=== PATIENT | male | born 1980 | race American Indian/Alaskan Native ===

== ENCOUNTER 2019-12-18 17:11 | Emergency (ER) | payer OTHER ==
--- NOTE | 2019-12-18 17:59 | EDM.PDOC ---
ED HPI GENERAL MEDICAL PROBLEM - General Chief Complaint: Cardiovascular Problem Stated Complaint: HIGH BP Time Seen by Provider: 12/18/19 17:20 Source of Information: Reports: Patient History Limitations: Reports: No Limitations - History of Present Illness INITIAL COMMENTS - FREE TEXT/NARRATIVE: Patient is a 39-year-old male who presents with complaints of double vision, lightheadedness, and mild headache. Patient states that the double vision and lightheadedness started last night and that the headache started today. Patient has a history of hypertension, type 2 diabetes, and high cholesterol. He's been out of his medications for 2 months, so he has not been taking them. He states that this morning his girlfriend called the [facility] ambulance and they came over and checked his blood pressure and blood sugar. He reports that his blood pressure was in the 160s systolic and that his blood sugar was about 153. He did find a bottle of his old medications and took one dose of each of these medications, however he is not sure what specific blood pressure medication he is on. Since taking the medication, his double vision has stayed the same and he feels that this symptom has gotten worse since last night. She does state that approximately 2 nights ago he slipped on the ice and fell on his right side. He does not feel like he hit his head, however he fell hard enough on his side where he did "see black ". He denies any tenderness to his head and did not have any headache immediately following the fall. Patient states that he does occasionally use alcohol with his last use being on Thursday of this week. He also smokes marijuana occasionally. The last time he smoked that was 3 days ago. He has no history of seizures or migraines or any neurologic disorders. Patient does state that he's been getting over a viral respiratory illness and has had some lingering nasal congestion. Denies any nausea, or vomiting since the onset of the symptoms. Headache Pain Score (Numeric/FACES): 4 - Related Data Allergies Allergy/AdvReac Type Severity Reaction Status Date / Time No Known Allergies Allergy Verified 12/18/19 17:21 Home Meds: Home Meds Amoxicillin/Clavulanate K [Augmentin 875-125 MG] 1 tab PO BID 7 Days #13 tablet 12/18/19 [Rx] Aspirin [Halfprin] 81 mg PO DAILY 12/18/19 [History] Cholesterol Med 0 mg PO DAILY 12/18/19 [History] Htn Med 0 mg PO DAILY 12/18/19 [History] metFORMIN [Glucophage XR] 0 mg PO DAILY 12/18/19 [History] Past Medical History HEENT History: Reports: Impaired Vision Other HEENT History: wears eyeglasses. Cardiovascular History: Reports: High Cholesterol, Hypertension Musculoskeletal History: Reports: Fracture Endocrine/Metabolic History: Reports: Diabetes, Type II - Infectious Disease History Infectious Disease History: Reports: Chicken Pox Social & Family History - Tobacco Use Smoking Status *Q: Current Some Day Smoker Years of Tobacco use: 20 Packs/Tins Daily: 0.1 - Caffeine Use Caffeine Use: Reports: Soda, Tea - Recreational Drug Use Recreational Drug Use: Yes Drug Use in Last 12 Months: Yes Recreational Drug Type: Reports: Marijuana/Hashish Other Recreational Drug Type: smokes marijuana frequently but not daily. States does not smoke cigarettes. ED ROS GENERAL - Review of Systems Review Of Systems: Comprehensive ROS is negative, except as noted in HPI. ED EXAM, GENERAL - Physical Exam Exam: See Below Exam Limited By: No Limitations General Appearance: Alert, WD/WN, No Apparent Distress Eye Exam: Bilateral Eye: Normal Inspection, PERRL, Vision Changes (patient verbalizes "double vision". When holding up a pen, patient states that he sees 2 of them that he also sees 2 of the provider.), Other (no nystagmus. Tracks appropriately.) Ears: Normal External Exam, Normal Canal, Hearing Grossly Normal, Normal TMs Head: Atraumatic, Normocephalic Respiratory/Chest: No Respiratory Distress, Lungs Clear, Normal Breath Sounds, No Accessory Muscle Use, Chest Non-Tender Cardiovascular: Normal Peripheral Pulses, Regular Rate, Rhythm, No Edema, No Gallop, No JVD, No Murmur, No Rub Neurological: Alert, Oriented, CN II-XII Intact, Normal Cognition, Normal Gait, Normal Reflexes, No Motor/Sensory Deficits Psychiatric: Normal Affect, Normal Mood Skin Exam: Warm, Dry, Intact, Normal Color, No Rash Lymphatic: No Adenopathy Course - Vital Signs Last Recorded V/S: Last Vital Signs Temp 98.4 F 12/18/19 19:25 Pulse 72 12/18/19 19:25 Resp 16 12/18/19 19:25 BP 130/83 01/19/20 19:25 Pulse Ox 97 12/18/19 19:25 - Orders/Labs/Meds Orders: Active Orders 24 hr Category Date Time Status Visual Acuity [Vision Test] [RC] ASDIRECTED Care 12/18/19 18:20 Active Labs: Laboratory Tests 12/18/19 12/18/19 12/18/19 Range/Units 17:24 18:05 18:05 WBC 7.65 (4.23-9.07) K/mm3 RBC 5.66 (4.63-6.08) M/mm3 Hgb 16.7 (13.7-17.5) gm/dl Hct 49.6 (40.1-51.0) % MCV 87.6 (79.0-92.2) fl MCH 29.5 (25.7-32.2) pg MCHC 33.7 (32.2-35.5) g/dl RDW Std Deviation 43.7 (35.1-43.9) fL Plt Count 307 (163-337) K/mm3 MPV 10.0 (9.4-12.3) fl Neut % (Auto) 66.0 (34.0-67.9) % Lymph % (Auto) 23.7 (21.8-53.1) % [place] % (Auto) 7.7 (5.3-12.2) % Eos % (Auto) 1.7 (0.8-7.0) Baso % (Auto) 0.5 (0.1-1.2) % Neut # (Auto) 5.05 (1.78-5.38) K/mm3 Lymph # (Auto) 1.81 (1.32-3.57) K/mm3 [place] # (Auto) 0.59 (0.30-0.82) K/mm3 Eos # (Auto) 0.13 (0.04-0.54) K/mm3 Baso # (Auto) 0.04 (0.01-0.08) K/mm3 Sodium 140 (136-145) mEq/L Potassium 4.0 (3.5-5.1) mEq/L Chloride 103 (98-107) mEq/L Carbon Dioxide 26 (21-32) mEq/L Anion Gap 15.0 (5-15) BUN 13 (7-18) mg/dL Creatinine 0.9 (0.7-1.3) mg/dL Est Cr Clr Drug Dosing 118.53 mL/min Estimated GFR (MDRD) > 60 (>60) mL/min BUN/Creatinine Ratio 14.4 (14-18) Glucose 141 H (74-106) mg/dL POC Glucose 130 H (70-105) mg/dL Calcium 9.2 (8.5-10.1) mg/dL Total Bilirubin 0.9 (0.2-1.0) mg/dL AST 48 H (15-37) U/L ALT 95 H (16-63) U/L Alkaline Phosphatase 95 (46-116) U/L Total Protein 7.6 (6.4-8.2) g/dl Albumin 4.0 (3.4-5.0) g/dl Globulin 3.6 gm/dL Albumin/Globulin Ratio 1.1 (1-2) TSH 3rd Generation 1.297 (0.358-3.74) uIU/mL Ethyl Alcohol (0.00) gm% 12/18/19 Range/Units 18:05 WBC (4.23-9.07) K/mm3 RBC (4.63-6.08) M/mm3 Hgb (13.7-17.5) gm/dl Hct (40.1-51.0) % MCV (79.0-92.2) fl MCH (25.7-32.2) pg MCHC (32.2-35.5) g/dl RDW Std Deviation (35.1-43.9) fL Plt Count (163-337) K/mm3 MPV (9.4-12.3) fl Neut % (Auto) (34.0-67.9) % Lymph % (Auto) (21.8-53.1) % [place] % (Auto) (5.3-12.2) % Eos % (Auto) (0.8-7.0) Baso % (Auto) (0.1-1.2) % Neut # (Auto) (1.78-5.38) K/mm3 Lymph # (Auto) (1.32-3.57) K/mm3 [place] # (Auto) (0.30-0.82) K/mm3 Eos # (Auto) (0.04-0.54) K/mm3 Baso # (Auto) (0.01-0.08) K/mm3 Sodium (136-145) mEq/L Potassium (3.5-5.1) mEq/L Chloride (98-107) mEq/L Carbon Dioxide (21-32) mEq/L Anion Gap (5-15) BUN (7-18) mg/dL Creatinine (0.7-1.3) mg/dL Est Cr Clr Drug Dosing mL/min Estimated GFR (MDRD) (>60) mL/min BUN/Creatinine Ratio (14-18) Glucose (74-106) mg/dL POC Glucose (70-105) mg/dL Calcium (8.5-10.1) mg/dL Total Bilirubin (0.2-1.0) mg/dL AST (15-37) U/L ALT (16-63) U/L Alkaline Phosphatase (46-116) U/L Total Protein (6.4-8.2) g/dl Albumin (3.4-5.0) g/dl Globulin gm/dL Albumin/Globulin Ratio (1-2) TSH 3rd Generation (0.358-3.74) uIU/mL Ethyl Alcohol 0.00 (0.00) gm% Meds: Medications Discontinued Medications Generic Name Dose Route Start Last Admin Trade Name Freq PRN Reason Stop Dose Admin Amoxicillin/Clavulanate Potassium 1 tab 12/18/19 19:20 12/18/19 19:24 Augmentin 875 Mg/125 Mg PO 12/18/19 19:21 1 tab ONETIME ONE Administration - Re-Assessments/Exams Free Text/Narrative Re-Assessment/Exam: Blood pressure in triage was 142/99. This is after the patient took a dose of his blood pressure medications, however he is not sure what they specifically were. Patient continues to state that he has double vision. Neurologic exam was normal. . Patient's gait is steady. No ataxia noted. I have ordered a CT of the head, CBC, CMP, TSH, and blood alcohol. 12/18/19 18:52 Hematology was grossly unremarkable with the exception of a mildly elevated blood glucose. head Ct was negative for any acute changes. CT did show a mild sinusitis. Discussed this with pt and he states that he has been congested for "quite awhile". I will start him on augmentin for this. I will order an outpatient MRI for the patient. Discussed with the pt that he should call to schedule an appt with a primary care provider first thing in the morning and that radiology will be calling to schedule an MRI. I did advise them that radiology will need to know where to send the results to and that he needs to have his medications refilled so that he can continue taking them.. I also recommended that he schedule an appointment with an career and transition teacher. discharge instructions as noted. Departure - Departure Time of Disposition: 19:07 Disposition: Home, Self-Care 01 Condition: Fair Clinical Impression: Diplopia Prescriptions: Amoxicillin/Clavulanate K [Augmentin 875-125 MG] 1 tab PO BID 7 Days #13 tablet Instructions: [place] Referrals: PCP,None [Primary Care Provider] - Forms: ED Department Discharge Additional Instructions: You were seen in the emergency department tonight for double vision, dizziness, and a mild headache. Your labs were all normal, with the exception of a mildly elevated glucose at 141. A CT of your head was done and that came back normal, but did show some sinus inflammation. You have been started on Augmentin with the first dose given tonight in ER and the remainder sent to [facility]. An outpatient MRI has been ordered for you. You should receive a call from radiology in the morning to schedule that. I do recommend that you call and schedule an appointment with a primary care provider first thing in the morning as well to follow-up on this visit, as well as to get restarted on your daily medications. The radiology department will alsoneed to know where to send the results of your MRI. I also recommend that you schedule appointment with an career and transition teacher. If you should experience any new or worsening symptoms, please do not hesitate to return to the emergency department. Sepsis Event Note - Evaluation Sepsis Screening Result: No Definite Risk - Focused Exam Vital Signs: Vital Signs Temp Pulse Resp BP Pulse Ox 12/18/19 19:25 98.4 F 72 16 130/83 97 12/18/19 17:20 99.0 F 94 16 142/99 H 96 Date Exam was Performed: 12/18/19 Time Exam was Performed: 19:29 - My Orders Last 24 Hours: My Active Orders 12/18/19 18:20 Visual Acuity [Vision Test] [RC] ASDIRECTED - Assessment/Plan Last 24 Hours: My Active Orders 12/18/19 18:20 Visual Acuity [Vision Test] [RC] ASDIRECTED
--- NOTE | 2019-12-18 18:50 | CT ---
Head CT Technique: Multiple axial sections through the brain were obtained. Intravenous contrast was not utilized. Findings: Opacified right maxillary sinus is seen with mild mucosal thickening seen within left maxillary sinus. Mild mucosal thickening is noted within the ethmoid sinuses. Mastoid sinuses are clear. No acute calvarial abnormality is appreciated. Ventricles along with basal cisterns and sulci over the convexities are within normal limits. No abnormal parenchymal densities are seen. No evidence of intracranial hemorrhage. No midline shift or mass effect is appreciated. Impression: 1. Sinus findings as noted above most likely chronic. 2. No acute intracranial abnormality is appreciated. Diagnostic code #2 This report was dictated in [place] Standard Time
[2019-12-18] MEDS ORDERED: Amoxicillin/Clavulanate K 875-125 MG Tab PO ONE (19:20)
== END 2019-12-18 19:28 | disposition home or self-care (01) ==
LOC: JD.ED 17:11
DX: H53.2 Diplopia (principal); I10 Essential (primary) hypertension; E11.9 Type 2 diabetes mellitus without complications; E78.00 Pure hypercholesterolemia, unspecified; F17.210 Nicotine dependence, cigarettes, uncomplicated; Z79.82 Long term (current) use of aspirin; Z79.899 Other long term (current) drug therapy; Z79.84 Long term (current) use of oral hypoglycemic drugs
CPT/HCPCS: 36415; 70450; 80053; 80320; 82962; 84443; 85025; 99285; A9270; 99282; G0480